=== PATIENT | female | born 1975 | race Caucasian/White ===

== ENCOUNTER 2020-06-02 01:20 | Emergency (ER) | payer SELFPAY ==
[2020-06-02] MEDS ORDERED: Boostrix 0.5 ML (Tdap) VIAL ONE (01:35)
[2020-06-02 03:33] LABS: Pregnancy Test - Urine (BHCG) Negative (Negative); Pregu Control Background? CLEAR/WHITE (CLR/WHITE); Pregu Control Bar Appear? YES (CONTROL BAR); Specific Gravity 1.003 (1.002-1.036)
--- NOTE | 2020-06-02 08:24 | CT ---
PRELIMINARY REPORT/[facility]/EMERGENCY AFTER HOURS PROCEDURE: EXAM: CT Cervical Spine Without Intravenous Contrast. CLINICAL HISTORY: S/P FALL W/ HEAD LAC ON FOREHEAD, ER PT, NO PRIOR TECHNIQUE: Axial computed tomography images of the cervical spine without intravenous contrast. Sagit tavia and coronal reformations performed. COMPARISON: None provided. FINDINGS: BONES: No acute fracture or focal osseous lesion. Bony alignment is anatomic. Reversal of the cervical lordosis. DISCS / DEGENERATIVE CHANGES: Mild disc narrowing and osteophytosis at C4-C5 and C5-C6. Mild central stenosis with mild left-sided foraminal stenosis at C3-C4. Moderate central stenosis wi th severe right and moderate left foraminal stenosis at C4-C5. Severe central stenosis with moderate right and severe left foraminal stenosis at C5-C6. SOFT TISSUES: No prevertebral soft tissue swelling. No apical pneumothorax. IMPRESSION: No acute cervical spine abnormality. Reversal of the cervical lordosis. Multilevel mild degenerative disc disease. Severe central stenos is at C5-C6, moderate at C4-C5, and mild at C3-C4. Multilevel foraminal stenosis, severe on the left side at C5-C6. ELECTRONICALLY SIGNED BY: Hema Cartagena MD Jun 02, 2020 2:07:14 AM PASSENGER REPRESENTATIVE This report is intended for review by the ordering physician only, in accordance of law. If you recei ve this report in error, please call [facility] at [phone]. FINAL REPORT CT OF THE CERVICAL SPINE: DATE: 06/02/2020 CT of the cervical spine was done following trauma. I am in agreement with the preliminary reading by [facility], showing no fracture, reversal of lordosis, and cervical spondylosis with multileve l foraminal and central canal stenosis. IMPRESSION: Reversal of lordosis, multilevel degenerative change, but no fracture or dislocation. Report in agreement with preliminary reading by [facility]. POS: HOME
--- NOTE | 2020-06-02 08:25 | CT ---
PRELIMINARY REPORT/[facility]/EMERGENCY AFTER HOURS PROCEDURE: EXAM: CT Head Without Intravenous Contrast. CLINICAL HISTORY: S/P FALL W/ HEAD LAC ON FOREHEAD, ER PT, NO PRIOR TECHNIQUE: Axial computed tomography images of the head/brain without intravenous contrast. COMPARISON: None provided. FINDINGS: BRAIN: No acute intraparenchymal hemorrhage. No mass lesion. No CT evidence for acute territorial infarct. N o midline shift or extra-axial collection. VENTRICLES: No hydrocephalus. ORBITS: The orbits are unremarkable. SINUSES AND MASTOIDS: The paranasal sinuses and mastoid air cells are clear. SOFT TISSUES: No significant facial or scalp soft tissue swelling evident. No radiopaque foreign body is seen. BONES: No acute skull fracture. IMPRESSION: No acute intracranial abnormality. ELECTRONICALLY SIGNED BY: Hema Cartagena MD Jun 02, 2020 2:04:33 AM ENGINEERING DESIGN MANAGER This report is intended for review by the ordering physician only, in accordance of law. If you recei ve this report in error, please call [facility] at [phone]. FINAL REPORT CT OF THE BRAIN WITHOUT CONTRAST: DATE: 06/02/[address] was done for evaluation after a fall. The ventricles are normal in size with no shif t. No intracranial bleeding or extra-axial hematoma seen. There is no sign of mass, edema, or stroke. A small bony projection from the inner table of the high right posterior frontal bone is of no curre nt concern. IMPRESSION: No acute intracranial findings. Report in agreement with preliminary reading by [facility]. POS: HOME
== END 2020-06-02 03:30 | disposition home or self-care (01) ==
LOC: BURERS 01:20
DX: S01.81XA Laceration without foreign body of other part of head, initial encounter (principal); I10 Essential (primary) hypertension; F17.210 Nicotine dependence, cigarettes, uncomplicated; W00.0XXA Fall on same level due to ice and snow, initial encounter
CPT/HCPCS: 12011; 70450; 72125; 81025; 90471; 90715